=== PATIENT | male | born 2000 | race African-American/Black ===

== ENCOUNTER 2022-04-03 19:39 | Emergency (ER) | payer OTHER ==
[2022-04-03 19:52] VITALS: BP 112/65; PULSE 100; RESP 18; TEMP 98; BMI 22.8
[2022-04-03] MEDS ORDERED: IBUPROFEN 400 MG TABLET (FP) PO ONE (20:55)
== END 2022-04-03 21:45 | disposition home or self-care (01) ==
LOC: JERFT 19:39
PROC: 0HQGXZZ Repair Left Hand Skin, External Approach (ICD-10-PCS; principal; 2022-04-03)
DX: S61.412A Laceration without foreign body of left hand, initial encounter (principal); W25.XXXA Contact with sharp glass, initial encounter
CPT/HCPCS: 73130-TC-LT-FY; 99283-25

== ENCOUNTER 2022-04-10 14:56 | Emergency (ER) | payer OTHER ==
[2022-04-10 15:05] VITALS: BP 110/67; PULSE 75; RESP 18; TEMP 97.8; BMI 21.7
== END 2022-04-10 16:05 | disposition home or self-care (01) ==
LOC: JERFT 14:56 → JER 14:56 → JERFT 16:05
DX: Z48.02 Encounter for removal of sutures (principal)
CPT/HCPCS: 99281-25